=== PATIENT | female | born 1960 | race Caucasian/White ===

== ENCOUNTER 2018-05-28 13:11 | Outpatient (REF) | payer OTHER, SELFPAY ==
--- NOTE | 2018-05-28 11:20 | PAPFT_PTH ---
PATIENT: DANIA PEREZ LOC: [facility] U#:[id number] AGE/SX: 58/F ROOM: RE05/28/[address]: MIKA Mims : 1960 BED: DIS: 05/28/2018 SPEC #: [id number] RECD: 05/28/18 15:35 STATUS: VLADIMIR REErick #: [id number] SUHAIL: 05/28/18 11:[address]: Mague Quick DEPT: [facility] Cytology RECD BY: Jacquie Carter ENTERED: 05/28/18 15:36 SP TYPE: PAPFT OTHR DR: Miguel Rosenbaum Tissues: 1 - CX/ENDOCX FOR PAP SMEARS Procedures: PAP THIN PREP/[facility] Screening HPV DNA PROBE Comments: [id number]
== END 2018-05-28 13:31 ==
LOC: LBN 13:11
PROVIDERS: PCP Family Medicine; Visit Provider Nurse Practitioner Family
DX: Z12.4 Encounter for screening for malignant neoplasm of cervix (principal); Z11.51 Encounter for screening for human papillomavirus (HPV)
CPT/HCPCS: 88142; 87624

== ENCOUNTER 2018-06-14 01:48 | Outpatient (CLI) | payer OTHER, SELFPAY ==
--- NOTE | 2018-06-14 11:10 | DI.MAMMO_ITS ---
SYMPTOM/DIAGNOSIS: SCREENING, Z12.31 MAMMOGRAMS: Mammograms were interpreted according to the usual protocol including computer analysis with CAD system, tomosynthesis and C view imaging. Comparison with prior examinations. Breast density B. No suspicious masses or microcalcifications are seen. There is no definite evidence of malignancy. IMPRESSION: Negative mammogram. Routine screening is recommended. Category I. MQSA ASSESSMENT OF FINDINGS: Negative. Category 1. Patient will receive a letter notifying them of these results. BI-RADS category B. There are scattered areas of fibroglandular density.
== END 2018-06-14 02:08 ==
PROVIDERS: PCP Family Medicine; Visit Provider Nurse Practitioner Family
DX: Z12.31 Encounter for screening mammogram for malignant neoplasm of breast (principal)
CPT/HCPCS: 77063; 77067